=== PATIENT | male | born 1955 | race Caucasian/White ===

== ENCOUNTER 2017-02-17 12:05 | Inpatient (IN) | payer BC ==
[2017-02-17] MEDS ORDERED: HYDROmorphone 1 MG/ML 1 ML SYRINGE ONE (12:58)
[2017-02-17] MEDS ORDERED: SODIUM CHLORIDE 0.9% 1,000 ML IV ONE (13:00)
--- NOTE | 2017-02-17 14:21 | US ---
EXAMINATION TYPE: US gallbladder DATE OF EXAM: 02/17/2017 COMPARISON: CLINICAL HISTORY: RUQ pain. GB removed x September 2016. SP right groin stent placement. EXAM MEASUREMENTS: Liver Length: 17.8 cm CBD: cm CHD: Right Kidney: 10.5 x 5.6 x 4.9 cm Patient unable to turn LLD due to SP surgery Pancreas: Tail obscured by overlying bowel gas. Echogenic. Main pancreatic duct = 2.4 mm Liver: Multiple cystic lesions seen. Largest on right = 1.4 x 1.3 x 1.3 cm. Largest on left = 1.6 x 1.7 x 1.4 cm Gallbladder: Surgically absent CBD: wnl as visualized CHD: wnl as visualized Right Kidney: lower pole cystic lesion = 1.0 x 1.1 x 0.8 cm IMPRESSION: 1. Cysts within the liver and inferior pole right kidney
--- NOTE | 2017-02-17 15:52 | P.HPIM ---
History of Present Illness H&P Date: 02/17/17 Chief Complaint: Acute non-ST OK, post PCI and stent placement, emergency hypertension, hype 61-year-old male one of Dr. 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 His troponin came back slightly elevated in emergent department. Was hospitalized at [facility] and develop another chest pain in the hospital require nitro drip along with heparin drip. Patient EKG didn't show any change his CK with troponin was elevated ended up going for diagnostic heart catheter showed mid LAD significant stenosis. Patient was transferred to [facility] for an angioplasty of the LAD by cardiology. Review of Systems Constitutional: Denies as per HPI, Denies anorexia, Denies chills, Denies chronic headaches, Denies chronic pain, Denies daytime sleepiness, Denies fatigue, Denies fever, Denies lethargy, Denies malaise, Denies night sweats, Denies poor appetite, Denies sweats, Denies weakness, Denies weight gain, Denies weight loss Eyes: bilateral as per HPI Ears: bilateral: decreased hearing Ears, nose, mouth and throat: Reports nasal congestion, Reports sinus pain, Reports sinus pressure, Denies as per HPI, Denies ant. neck pain, Denies bleeding gums, Denies dental pain, Denies dysphagia, Denies epistaxis, Denies headache, Denies hoarseness, Denies mouth pain, Denies nasal discharge, Denies neck fullness/pressure, Denies neck lump, Denies nose pain, Denies odynophagia, Denies post-nasal drip, Denies swelling in mouth, Denies swelling in throat, Denies sore throat, Denies vertigo, Denies voice changes Cardiovascular: Reports chest pain, Reports dyspnea on exertion, Reports edema, Reports high blood pressure, Reports leg edema, Reports orthopnea, Reports shortness of breath, Denies as per HPI, Denies claudication, Denies decreased exercise tolerance, Denies irregular heart beat, Denies lightheadedness, Denies palpitations, Denies paroxysmal nocturnal dyspnea, Denies phlebitis, Denies rapid heart beat, Denies syncope Respiratory: Reports congestion, Reports cough, Reports dyspnea, Denies as per HPI, Denies cough with sputum, Denies excessive sputum, Denies hemoptysis, Denies home oxygen, Denies pain, Denies pain on inspiration, Denies pleurisy, Denies respiratory infections, Denies sleep apnea, Denies snoring, Denies wheezing Gastrointestinal: Reports belching, Reports dyspepsia, Reports indigestion, Reports nausea, Denies as per HPI, Denies abdominal pain, Denies bloating, Denies BRBPR, Denies change in bowel habits, Denies coffee ground emesis, Denies constipation, Denies diarrhea, Denies early satiety, Denies excessive gas , Denies heartburn, Denies hematemesis, Denies hematochezia, Denies jaundice, Denies lactose intolerance, Denies loss of appetite, Denies melena, Denies vomiting Genitourinary: Reports urinary frequency, Denies as per HPI, Denies decreased libido, Denies difficulties fathering child, Denies discharge, Denies dysuria, Denies erectile dysfunction, Denies flank pain, Denies genital pain, Denies genital sores, Denies hematuria, Denies impotence, Denies incontinence, Denies kidney stones, Denies nocturia, Denies polyuria, Denies testicular lump, Denies testicular pain, Denies urinary hesitancy, Denies urinary retention Musculoskeletal: Reports loss of height, Reports low back pain, Reports myalgias , Reports neck pain, Denies as per HPI, Denies arm numbness/tingling, Denies atrophy, Denies fractures, Denies frequent falls, Denies gait dysfunction, Denies hot joints, Denies leg numbness/tingling, Denies limitation of motion, Denies morning stiffness, Denies muscle cramps, Denies muscle weakness, Denies neck stiffness, Denies prior amputations, Denies redness of joints, Denies shooting arm pain, Denies shooting leg pain Integumentary: Reports pruritus, Reports rash, Denies as per HPI, Denies acne, Denies boils, Denies brittle nails, Denies change in hair/nails, Denies color changes, Denies darkening of skin, Denies depigmentation, Denies dryness, Denies foot/leg ulcers, Denies growths, Denies hirsutism, Denies lesions, Denies onychomycosis, Denies sores, Denies striae, Denies unusual bruising, Denies wounds Neurological: Reports paresthesias, Reports tingling, Denies as per HPI, Denies aphasia, Denies ataxia, Denies balance difficulties, Denies burning pain, Denies change in mentation, Denies change in smell/taste, Denies change in speech, Denies confusion, Denies convulsions, Denies double vision, Denies gait dysfunction, Denies head injury, Denies headaches, Denies hearing difficulties, Denies lack of coordination, Denies loss of vision, Denies memory loss, Denies migraines, Denies motor disturbance, Denies numbness, Denies paralysis, Denies seizures, Denies sensory deficit, Denies spasticity, Denies syncope, Denies tic , Denies transient paralysis, Denies tremors, Denies vertigo, Denies weakness, Denies visual changes Psychiatric: Reports anhedonia, Reports anxiety, Reports depression, Denies as per HPI, Denies anxiety attacks, Denies change in appetite, Denies change in libido, Denies change in sleep habits, Denies confusion, Denies difficulty concentrating, Denies disorientation, Denies hallucinations, Denies hopelessness , Denies hypersomnia, Denies insomnia, Denies irritability, Denies memory loss, Denies mood swings, Denies paranoia, Denies sadness/tearfulness, Denies sleep disturbances, Denies suicidal ideation Endocrine: Reports deepening of the voice, Reports polyphagia, Denies as per HPI , Denies cold intolerance, Denies excessive sweating, Denies excessive thirst, Denies fatigue, Denies flushing, Denies heat intolerance, Denies high blood sugars, Denies increase in ring/shoe/hat size, Denies low blood sugars, Denies nocturia, Denies palpitations, Denies polydipsia, Denies polyuria, Denies proptosis, Denies recent glucocorticoid use, Denies thyroid mass, Denies weight change Hematologic/Lymphatic: Reports easy bruising, Denies as per HPI, Denies easy bleeding, Denies lymphadenopathy, Denies lymphedema, Denies thrombophilia Allergic/Immunologic: Denies as per HPI, Denies allergic rhinitis, Denies anaphylaxis, Denies angioedema, Denies gluten intolerance, Denies persistent infections, Denies seasonal allergies, Denies urticaria, Denies wheezing Past Medical History Past Medical History: Chest Pain / Angina, GERD/Reflux, Hyperlipidemia, Hypertension, Myocardial Infarction (OK), Prostate Disorder, Sleep Apnea/CPAP/ BIPAP, Thyroid Disorder Additional Past Medical History / Comment(s): BPH. HX Hiatal Hernia, HAD OR. NO TX FOR SLEEP APNEA. [place] X2, LAST 04/2015 Last Myocardial Infarction Date:: 10/2010 History of Any Multi-Drug Resistant Organisms: None Reported Past Surgical History: Heart Catheterization, Hernia Repair Additional Past Surgical History / Comment(s): 06-11-15 [employer] FUNDOPLASTY. Heart Cath X2, LAST 05/15/15. Past Anesthesia/Blood Transfusion Reactions: Previous Problems w/ Anesthesia Additional Past Anesthesia/Blood Transfusion Reaction / Comment(s): TOOK VERY LONG TIME TO AWAKEN AFTER SURG 05/2015. 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 WORKS [employer] FOR [employer], ON [employer] WORKS FOR [employer] TO [employer]. 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 Smoking Status: Former smoker Past Alcohol Use History: Occasional Additional Past Alcohol Use History / Comment(s): (SMOKED [id number]) Past Drug Use History: None Reported - Past Family History Mother History Unknown: Yes Family Medical History: CVA/TIA Additional Family Medical History / Comment(s): at age 57 from brain annurysm Father History Unknown: Yes Family Medical History: Osteoarthritis (OA), Prostate Disorder Medications and Allergies Home Medications Medication Instructions Recorded Confirmed Type Levothyroxine Sodium [Synthroid] 50 mcg PO DAILY 06/06/15 07/15/16 History Aspirin EC [Ecotrin Low Dose] 81 mg PO DAILY 07/15/16 07/15/16 History Atorvastatin [Lipitor] 10 mg PO DAILY 07/15/16 07/15/16 History Ibuprofen [Advil] 400 mg PO Q8HR PRN 07/15/16 07/15/16 History Lisinopril [Zestril] 20 mg PO DAILY 07/15/16 07/15/16 History Tamsulosin HCl [Flomax] 0.4 mg PO DAILY 07/15/16 07/15/16 History Allergies Allergy/AdvReac Type Severity Reaction Status Date / Time codeine AdvReac Nausea & Verified 07/15/16 23:07 Vomiting Penicillins AdvReac Nausea & Verified 07/15/16 23:07 Vomiting Physical Exam Vitals: Vital Signs Pulse Resp BP Pulse Ox 02/17/17 15:15 68 16 138/78 95 02/17/17 14:15 78 16 145/86 97 02/17/17 13:45 80 16 140/88 97 02/17/17 13:15 78 16 133/86 99 02/17/17 13:10 80 16 139/87 98 02/17/17 12:51 87 16 139/85 Intake and Output 02/17/17 02/17/17 02/17/17 06:59 14:59 22:59 Output Total 200 Balance -200 Output: Urine 200 Other: Weight 83.461 kg Patient Weight 02/18/17 06:59 Weight 83.461 kg - Constitutional General appearance: no average body habitus, cooperative, no disheveled, no mild distress, no morbidly obese, no acute distress, no obese, no severe distress, no thin - EENT Eyes: no abnormal pupil, no anicteric sclerae, no disc margins sharp, no edentulous, no EOMI, no PERRLA, no fundus normal, no photophobia, no dentition normal, no poor dentition, no ptosis, no scleral icterus, normal appearance ENT: no hard of hearing, no hearing grossly normal, no NA/AT, normal oropharynx , no other, no pharyngeal erythema, no thrush, no tonsillar exudates, no tonsillar swelling Ears: bilateral: normal - Neck Neck: normal ROM Carotids: bilateral: upstroke normal, upstroke delayed Thyroid: bilateral: normal size - Respiratory Respiratory: bilateral: CTA, diminished, dullness - Cardiovascular Rhythm: regular Heart sounds: normal: S1, S2 Abnormal Heart Sounds: systolic murmur, S3 Gallop - Gastrointestinal General gastrointestinal: no absent bowel sounds, decreased bowel sounds, distended, no hepatomegaly, no hyperactive bowel sounds, no normal bowel sounds , no organomegaly, no rigid, no scaphoid, no soft, no splenomegaly, no tenderness, no umbilical hernia, no ventral hernia - Integumentary Integumentary: no calor, no cellulitis, no cyanotic, no decreased turgor, no flushed, no jaundiced, normal, no normal turgor, pale, rash, no ulcer - Musculoskeletal Musculoskeletal: gait normal, generalized weakness, no strength equal bilaterally, no right sided weakness, no left sided weakness - Psychiatric Psychiatric: A&O x's 3 Thrombosis Risk Factor Assmnt - DVT/VTE Prophylaxis DVT/VTE Prophylaxis: Pharmacologic Prophylaxis ordered, Mechanical Prophylaxis ordered Assessment and Plan Plan: 1 acute non-ST OK: Patient had mid LAD significant stenosis ended up going for angioplasty and stent placement continue secondary prevention with statin, Arnol, beta larry, aspirin and dual antiplatelet therapy. 2 post PCI and stent placement: Stable continue patient antiplatelet agent and aspirin. 3 urgent hypertension: Symptom are not under control on lisinopril and Norvasc and metoprolol will titrate medication and add clonidine on hydralazine at this point if needed. 4 hyperlipidemia: Continue patient on atorvastatin 10 mg daily. 5 hypothyroidism: Continue patient levothyroxine. 6 BPH: Continue Proscar 5 mg daily. 7 GI prophylaxis: Continue patient Pepcid 20 mg daily. 8 DVT prophylaxis: Patient will be on heparin drip initially and switched to knee-high KATRIN hose and Venodyne boots. CODE STATUS: Full code. Expectation from's admission: Patient in the hospital for in the hospital for 2 nights.
[2017-02-17] MEDS ORDERED: LIDOCAINE 2% INJ 20 MG/ML (20 ML MDV) ONE (16:30)
[2017-02-17] MEDS ORDERED: diphenhydrAMINE 50 MG/ML 1 ML VIAL ONE (16:43)
[2017-02-17] MEDS ORDERED: MIDAZOLAM 2 MG/2 ML VIAL ONE (16:43)
[2017-02-17] MEDS ORDERED: diphenhydrAMINE 50 MG/ML 1 ML VIAL IVP ONE (16:55)
[2017-02-17] MEDS ORDERED: MIDAZOLAM 2 MG/2 ML VIAL IV ONE (16:55)
[2017-02-17] MEDS ORDERED: ceFAZolin 1,000 MG in DEXTROSE/WATER 1 50ML.BAG IVPB STA (17:00)
[2017-02-17] MEDS ORDERED: LIDOCAINE 2% INJ 20 MG/ML SQ ONE (17:01)
[2017-02-17] MEDS ORDERED: BIVALIRUDIN BOLUS 250 MG/50 ML IV ONE (17:10)
[2017-02-17] MEDS ORDERED: BIVALIRUDIN 250 MG in SODIUM CHLORIDE 0.9% 50 ML IV ONE (17:11)
[2017-02-17] MEDS ORDERED: NITROGLYCERIN 1000MCG/10ML SYRINGE INTRACORON ONE (17:22)
[2017-02-17] MEDS ORDERED: HYDROmorphone 2 MG/ML 1 ML SYRINGE ONE (17:27)
[2017-02-17] MEDS ORDERED: HYDROmorphone 2 MG/ML 1 ML SYRINGE IV ONE (17:28)
[2017-02-17] MEDS ORDERED: IOHEXOL 350 MG/ML 100 ML BOTTLE INJ ONE (17:28)
[2017-02-17] MEDS ORDERED: CLOPIDOGREL 75 MG TAB ONE (17:33)
[2017-02-17] MEDS ORDERED: CLOPIDOGREL 75 MG TAB PO ONE (17:38)
[2017-02-17] MEDS ORDERED: ATROPINE SULFATE 0.1 MG/ML 10ML SYRINGE IV PRN (17:43)
[2017-02-17] MEDS ORDERED: MAG HYDROX/AL HYDROX/SIMETH 30 ML CUP PO PRN (17:43)
[2017-02-17] MEDS ORDERED: ZOLPIDEM 5 MG TAB PO PRN (17:43)
[2017-02-17] MEDS ORDERED: RX INFO: IV CONTRAST WAS GIVEN 1 EACH MISC MISCELLANE PRN (17:43)
[2017-02-17] MEDS ORDERED: NITROGLYCERIN SL TABS 0.4 MG TAB SUBLINGUAL PRN (17:43)
[2017-02-17] MEDS ORDERED: SODIUM CHLORIDE 0.9% 1,000 ML IV SCH (17:45)
[2017-02-17 18:40] VITALS: BMI 26.4
[2017-02-17] MEDS ORDERED: ATORVASTATIN 80 MG TAB PO SCH (21:00)
[2017-02-17] MEDS: METOPROLOL TARTRATE 25 MG TAB PO SCH (21:03)
[2017-02-18 06:03] LABS: Basophils # (A) 0.1 k/uL (0-0.2); Basophils % (A) 1 %; CH 31.2; CHCM 33.5; Eosinophils # (A) 0.2 k/uL (0-0.7); Eosinophils % (A) 3 %; HCT 40.2 % (39.0-53.0); HDW 2.46; HGB 13.6 gm/dL (13.0-17.5); Luc # (Auto) 0.11; Luc % (Auto) 1; Lymphocytes # (A) 1.2 k/uL (1.0-4.8); Lymphocytes % (A) 16 %; MCH 31.6 pg (25.0-35.0); MCHC 33.8 g/dL (31.0-37.0); MCV 93.7 fL (80.0-100.0); Mean Platelet Volume 6.5; Monocytes # (A) 0.5 k/uL (0-1.0); Monocytes % (A) 6 %; Neutrophils # (A) 5.9 k/uL (1.3-7.7); Neutrophils % (A) 74 %; RBC 4.29 m/uL (4.30-5.90); RDW 13.4 % (11.5-15.5); WBC 7.9 k/uL (3.8-10.6); WBC (Perox) 8.23
--- NOTE | 2017-02-18 06:06 | PTCA ---
DATE OF SERVICE: 02/17/2017 PROCEDURE: PTCA and stenting of mid LAD with a drug-eluting stent. PERFORMED BY: Dr. Conchis Claudio. CLINICAL INFORMATION: Mr. Iván Steward is a 61-year-old gentleman with history of hypertension, hyperlipidemia who saw Dr. Chin about 2 years ago. Cardiac cath 2 years ago revealed no significant obstructive CAD. He presented to [facility] with chest pain suggestive of angina went on to have elevated troponin, with a non-ST elevation [place] type picture. He was advised cardiac catheterization, which was performed by Dr. Chin at [facility]. Cath revealed a co-dominant system with a mid LAD lesion of about 95% with somewhat sluggish flow. He was transferred to [facility] with a sheath sutured in. The patient was advised LAD PCI that was performed on the same day. PROCEDURE NOTE: The existing 6 Irish introducer in the right femoral artery was used to perform the procedure. Initially I used a 3.5 curved Josee catheter but had difficulty. I switched over to a 4.0 XBLAD catheter. With this I was able to cannulate the left coronary artery much better. A BMW wire was used to cross the lesion. Predilatation was performed using a 12 mm long, 2.25 caliber Trek balloon. Subsequently, a 12 mm long, 2.5 caliber Xience stent was deployed at 12 atmospheres. Patient had chest pain and precordial ST elevation. Excellent angiographic result was achieved without complication. He received 600 mg of Plavix. He also received Angiomax and bolus as per protocol. The sheath was taken out and a Perclose device used to secure hemostasis. Patient was sent to the room in stable condition. Moderate Conscious Sedation was provided for 45 min and Pt. monitored closely Excellent angiographic result without complication was noted and results were discussed with the patient and family. I expect he will be discharged in the next 24 to 48 hours if he remains stable. [facility]ENCE HEALTH SYSTEMDave
--- NOTE | 2017-02-18 06:09 | LTR ---
February 17, 2017 TOY MEDINA MD RE: Iván Steward Dear Dr. Medina: Thank you for the opportunity to participate in the care of Mr. Iván Steward. This gentleman presented with a non-ST elevation [place] to [facility]. He underwent a cardiac cath at [facility] and was transferred over to [facility] and I performed stenting of mid LAD with excellent angiographic result. A drug-eluting stent was deployed. I expect he will be discharged in next 24 to 48 hours if he remains stable. He should be on aspirin and Plavix combination without interruption for at least one year. Thank you for your referral and please do call for questions. With kindest regards. Sincerely yours, ARANZA CUBA MD
[2017-02-18 06:16] LABS: Anion Gap 7 mmol/L; Blood Urea Nitrogen 10 mg/dL (9-20); Calcium 9.1 mg/dL (8.4-10.2); Carbon Dioxide 25 mmol/L (22-30); Chloride 109 mmol/L (98-107); Glucose 93 mg/dL (74-99); Non-African American GFR(MDRD) >60 (>60 ml/min/1.73 sqM); Potassium 4.3 mmol/L (3.5-5.1); Sodium 141 mmol/L (137-145)
[2017-02-18] MEDS: METOPROLOL TARTRATE 25 MG TAB PO SCH (08:18)
[2017-02-18] MEDS ORDERED: CLOPIDOGREL 75 MG TAB PO SCH (09:00)
[2017-02-18] MEDS ORDERED: ASPIRIN 81 MG CHEW PO SCH (09:00)
[2017-02-18] MEDS ORDERED: LISINOPRIL 20 MG TAB PO SCH (09:00)
[2017-02-18] MEDS ORDERED: amLODIPine 5 MG TAB PO SCH (09:15)
[2017-02-18] MEDS ORDERED: LEVOTHYROXINE 50 MCG TAB PO SCH (09:15)
[2017-02-18] MEDS ORDERED: FLUTICASONE 50MCG/SPRAY NASAL 16GM EA NOSTRIL SCH (09:15)
[2017-02-18] MEDS ORDERED: FINASTERIDE 5 MG TAB PO SCH (09:15)
[2017-02-18] MEDS: TAMSULOSIN 0.4 MG CAP.ER.24H PO SCH ×2 (09:43→11:57)
--- NOTE | 2017-02-18 10:59 | P.PN ---
Subjective Principal diagnosis: Acute coronary syndrome This is a 61-year-old gentleman with history of hypertension, hyperlipidemia, who presented to [facility] with acute coronary syndrome, he underwent a cardiac catheterization by gurvinder Siddiqui and was transferred here where the patient underwent angioplasty and stent placement to the LAD by Dr. Ramona Claudio. EKG was reviewed this morning which showed a sinus bradycardia with anterior T-wave inversion. CBC normal. Potassium 4.3, BUN 10, creatinine 0.8. Patient denies having any chest discomfort, breathing overall has been stable. Objective - Vital Signs Vital signs: Vital Signs Temp 99.4 F 02/18/17 08:16 Pulse 66 02/18/17 08:16 Resp 18 02/18/17 08:16 BP 146/89 02/18/17 08:16 Pulse Ox 98 02/18/17 08:16 Intake & Output 02/17/17 02/18/17 02/18/17 18:59 06:59 18:59 Intake Total 802 675 240 Output Total 575 1625 100 Balance 227 -950 140 Weight 83.461 kg 84.3 kg Intake: IV 682 675 Sodium Chloride 0.9% 1, 675 000 ml @ 75 mls/hr IV . [id number] JAMES Rx#:[id number] Oral 120 240 Output: Urine 575 1625 100 Other: Voiding Method Urinal Urinal Urinal # Voids 1 2 - Exam PHYSICAL EXAMINATION: HEENT: Head is atraumatic, normocephalic. Pupils equal, round. Neck is supple. There is no elevated jugular venous pressure. HEART EXAMINATION: Heart S1, S2 normal. No murmur or gallop heard. CHEST EXAMINATION: Lungs are clear to auscultation and precussion. No chest wall tenderness is noted on palpation or with deep breathing. ABDOMEN: Soft, nontender. Bowel sounds are heard. No organomegaly noted. Right groin soft, no evidence of any hematoma. EXTREMITIES: 2+ peripheral pulses with no evidence of peripheral edema and no calf tenderness noted. NEUROLOGIC patient is awake, alert and oriented -3. . - Labs CBC & Chem 7: 02/18/17 05:31 02/18/17 05:29 Labs: Abnormal Lab Results - Last 24 Hours (Table) 02/18/17 02/18/17 Range/Units 05:29 05:31 RBC 4.29 L (4.30-5.90) m/uL Chloride 109 H (98-107) mmol/L Assessment and Plan (1) Hyperlipemia Status: Acute (2) Presence of stent in LAD coronary artery Status: Acute (3) Acute coronary syndrome Status: Acute (4) Hypertension Status: Acute Plan: Cardiology's perspective, patient may be able to be discharged home today. A follow-up appointment will be made with Dr. Chin in the office in one week. He will be discharged home on Norvasc 5 mg daily, aspirin 81 mg daily, Lipitor 80 mg daily, Plavix 75 mg daily, lisinopril 20 mg daily, metoprolol tartrate 25 mg one tablet by mouth twice a day and sublingual nitroglycerin as needed for chest pain. Patient has been provided prescriptions for all the above medications and has been given education regarding all of them as well. DNP note has been reviewed, I agree with a documented findings and plan of care. Patient was seen and examined.
[2017-02-18 11:39] VITALS: BP 139/87; PULSE 61; RESP 16; TEMP 97.7
--- NOTE | 2017-02-18 14:02 | P.DS ---
Providers Date of admission: 02/17/17 12:47 Expected date of discharge: 02/18/17 Attending physician: Thang Hilario Consults: 02/17/17 17:43 Consult Physician Routine Consulting Provider: Aj Salvador Consult Reason/Comments: Post Interventional patient Do you want consulting provider notified?: Already Contacted 02/17/17 17:44 Consult Physician Stat Consulting Provider: Aj Salvador Consult Reason/Comments: PTCA LAD Do you want consulting provider notified?: Already Contacted Primary care physician: Thang Hilario [facility] Course: 61-year-old male one of Dr. 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 His troponin came back slightly elevated in emergent department. Was hospitalized at [facility] and develop another chest pain in the hospital require nitro drip along with heparin drip. Patient EKG didn't show any change his CK with troponin was elevated ended up going for diagnostic heart catheter showed mid LAD significant stenosis. Patient was transferred to [facility] for an angioplasty of the LAD by cardiology. 02/18: Patient underwent PTCA and stenting of the mid LAD with a drug-eluting stent by Dr. EVERTON Claudio. Gallbladder ultrasound showed cysts within the liver and inferior pole right kidney and gallbladder was removed in September 2016., Bile duct was within normal limits. Patient was cleared by cardiology for discharge home today in stable condition. Discharge diagnoses: 1 acute non-ST RI 2 post PCI and stent placement 3 urgent hypertension: 4 hyperlipidemia 5 hypothyroidism 6 BPH Discharge plan: Return home Impression and plan of care have been directed as dictated by the signing physician. Courtney Jaquez nurse practitioner acting as scribe for signing physician. Cc Dr. Jeremy Michel Patient Condition at Discharge: Good Plan - Discharge Summary New Discharge Prescriptions: New Aspirin 81 mg PO DAILY #30 Atorvastatin [Lipitor] 80 mg PO HS #30 tab Clopidogrel [Plavix] 75 mg PO DAILY #30 tab Nitroglycerin Sl Tabs [Nitrostat] 0.4 mg SUBLINGUAL Q5M PRN #25 tab PRN Reason: Chest Pain Continue Levothyroxine Sodium [Synthroid] 50 mcg PO DAILY Tamsulosin HCl [Flomax] 0.4 mg PO DAILY Lisinopril [Zestril] 20 mg PO DAILY Fluticasone Propionate [Flonase Allergy Relief] 2 spray EA NOSTRIL DAILY amLODIPine [Norvasc] 5 mg PO DAILY Finasteride [Proscar] 5 mg PO DAILY Metoprolol Succinate (ER) [Toprol XL] 50 mg PO DAILY Discharge Medication List Levothyroxine Sodium [Synthroid] 50 mcg PO DAILY 06/06/15 [History] Lisinopril [Zestril] 20 mg PO DAILY 07/15/16 [History] Tamsulosin HCl [Flomax] 0.4 mg PO DAILY 07/15/16 [History] Finasteride [Proscar] 5 mg PO DAILY 02/17/17 [History] Fluticasone Propionate [Flonase Allergy Relief] 2 spray EA NOSTRIL DAILY [History] Metoprolol Succinate (ER) [Toprol XL] 50 mg PO DAILY 02/17/17 [History] amLODIPine [Norvasc] 5 mg PO DAILY 02/17/17 [History] Aspirin 81 mg PO DAILY #30 02/18/17 [Rx] Atorvastatin [Lipitor] 80 mg PO HS #30 tab 02/18/17 [Rx] Clopidogrel [Plavix] 75 mg PO DAILY #30 tab 02/18/17 [Rx] Nitroglycerin Sl Tabs [Nitrostat] 0.4 mg SUBLINGUAL Q5M PRN #25 tab 02/18/17 [Rx ] Follow up Appointment(s)/Referral(s): Jeremy Michel MD [REFERRING] - 02/26/17 11:15 am Gerri Chin MD [STAFF PHYSICIAN] - 02/24/17 3:45 pm Patient Instructions/Handouts: *Surgery [facility] - After Heart Catheterization - Log Sorter Instructions, Coronary Intravascular Stent Placement (DC) Discharge Disposition: HOME SELF-CARE
== END 2017-02-18 12:46 | disposition home or self-care (01) | DRG 247 ==
LOC: 6SEL 12:47
PROVIDERS: ADMIT Internal Medicine Geriatric Medicine; ATTEND Internal Medicine Geriatric Medicine
PROC: 027034Z Dilation of Coronary Artery, One Artery with Drug-eluting Intraluminal Device, Percutaneous Approach (ICD-10-PCS; principal; 2017-02-17 16:45)
DX: I21.4 Non-ST elevation (NSTEMI) myocardial infarction (principal); I10 Essential (primary) hypertension; E03.9 Hypothyroidism, unspecified; E78.5 Hyperlipidemia, unspecified; G47.30 Sleep apnea, unspecified; I25.119 Atherosclerotic heart disease of native coronary artery with unspecified angina pectoris; I25.2 Old myocardial infarction; K21.9 Gastro-esophageal reflux disease without esophagitis; N40.0 Benign prostatic hyperplasia without lower urinary tract symptoms; R00.1 Bradycardia, unspecified; I16.0 Hypertensive urgency; Z87.891 Personal history of nicotine dependence; Z79.82 Long term (current) use of aspirin; Z79.899 Other long term (current) drug therapy; Z88.5 Allergy status to narcotic agent; Z88.0 Allergy status to penicillin
CPT/HCPCS: 76705; 80048; 85025

== ENCOUNTER → 2020-08-07 | Outpatient (CLI) | payer BC ==
--- NOTE | 2020-08-07 13:39 | CT ---
EXAMINATION TYPE: CT angio chest DATE OF EXAM: 08/07/2020 COMPARISON: Prior CT of the chest is unavailable, comparison prior CT abdomen pelvis 07/16/2016 HISTORY: Thoracic aortic aneurysm CT DLP: 930 mGycm Automated exposure control for dose reduction was used. CONTRAST: CTA scan of the thorax is performed without and with IV Contrast, patient injected with 100 ml mL of Isovue 370, pulmonary embolism protocol. MIP images are created and reviewed. 3D reconstructed imag es are created on an independent workstation and reviewed. FINDINGS: LUNGS: The lungs some pleural nodularity. Subpleural nodule in the left lower lobe measures only 6 mm on axial image 46, same image right lower lobe smaller nodule is present, but stable. Nodular appe arance on axial image 34 within the right middle lobe measures only 4 mm each, nodule and axial image 36 is associated with the fissure is likely not concerning There is no pleural effusion or pneumotho rax seen. The tracheobronchial tree is patent. AORTA: At the level of the aortic root the aorta measures 4.9 cm, proximal ascending aorta measures approximately 4.2 cm, proximal descending aorta measures 2.9 cm, at the level of the aortic hiatus th e aorta measures 2.7 cm.. MEDIASTINUM: There is satisfactory enhancement of the pulmonary artery and its branches, there is no CT evidence for pulmonary embolism. There are no greater than 1 cm hilar or mediastinal lymph nodes. No pericardial effusion is seen. OTHER: Postop change noted the gastroesophageal junction. Low dense foci within the liver do not el w significant interval change, likely benign. IMPRESSION: INDETERMINATE NODULARITY WITHIN THE LUNGS IS LIKELY BENIGN, FOLLOW-UP COULD BE PERFORMED TO ASSESS FO R STABILITY. PROSTHETIC AORTIC ANEURYSM DESCRIBED.
== END | disposition home or self-care (01) ==
LOC: RADCTMAIN 09:03
PROVIDERS: ATTEND Internal Medicine
DX: I71.2 Thoracic aortic aneurysm, without rupture (principal); R91.8 Other nonspecific abnormal finding of lung field; Z88.0 Allergy status to penicillin
CPT/HCPCS: 82565; 84520; 71275; 36415; Q9967